=== PATIENT | male | born 1970 | race Two or more races ===

== ENCOUNTER → 2024-09-03 | Emergency (ER) | payer OTHER ==
[~2024-09-03] VITALS: Ht 167.6 cm; Wt 81.6 kg
[~2024-09-03] MED LIST: KETO10TA2 PO; TRAMADOL HCL 50 MG TABLET PO ONE
== END | disposition home or self-care (01) ==
LOC: ER 09:24
DX: R40.20 Unspecified coma (principal); M54.2 Cervicalgia